=== PATIENT | female | born 1950 | race African-American/Black ===

== ENCOUNTER 2019-01-07 13:40 | Inpatient (IN) | payer MEDICARE, MEDICAID ==
[~2019-01-07] VITALS: Ht 160 cm; Wt 73.8 kg
--- NOTE | 2019-01-07 13:47 | NUR ---
ED Nurse Note: Pt was brought to ED by [facility] with the c/o of multiple seizure started this morning. Placed on bed, hooked to electronic device monitor, established IV site on RT forearm with 18G, intact and patent. Blood specimen obtained; sent to labs. Will continue to monitor. Addendum: 01/07/19 at 1506 by [facility] ED Nurse Note: Pt was brought to ED by [facility] from board and care with the c/o of multiple seizure started this morning @ 0800. No head trauma, no oral trauma as pt verbalized. Placed on bed, hooked to electronic device monitor, established IV site on RT forearm with 18G, intact and patent. Blood specimen obtained; sent to labs. Will continue to monitor.
[2019-01-07 14:00] VITALS: BP 127/77
--- NOTE | 2019-01-07 14:11 | Emergency Room Report ---
History of Present Illness General Chief Complaint: Seizure Source: Medical Record, EMS Present Illness HPI Disclaimer: Please note that this report is being documented using DRAGON technology. This can lead to erroneous entry secondary to incorrect interpretation by the dictating instrument. HPI: 68-year-old female history of psychiatric disorder, hyperlipidemia presents for evaluation of seizures. The patient had witnessed generalized tonic-clonic seizures earlier today [facility]. There is no head injury. The patient remained conscious throughout the entire episodes of involuntary jerking. She states that she has never been put on antiepileptic medications. Over the past 2 years she reports having involuntary jerking movements in the left upper extremity and perioral paresthesias which she describes as seizures. They are becoming more frequent. She denies any recent head injury, headache, back pain, chest pain, shortness of breath, nausea, vomiting, diarrhea, fever or chills. She is otherwise in her usual state of health. Compliant with her medications. The involuntary jerking movements were more profound today involving her entire body which are new. PMH: Hypertension, hyperlipidemia, overactive bladder, psychiatric PSH: Reviewed Allergies: Denies Social Hx: Denies alcohol or drug use Allergies: Coded Allergies: No Known Allergies (Unverified , 01/07/19) Patient History Last Menstrual Period: na Nursing Documentation-PMH Hx Hypertension: Yes History Of Psychiatric Problem: Yes - depression Review of Systems All Other Systems: negative except mentioned in HPI Physical Exam Vital Signs Date Time Temp Pulse Resp B/P (MAP) Pulse Ox O2 Delivery O2 Flow Rate FiO2 01/07/19 13:45 99.0 76 18 120/80 (93) 89 Nasal Cannula 3.0 General: Awake and alert, no acute distress HEENT: NC/AT. EOMI. PERRLA. Pupils are 2 mm bilaterally faintly reactive. Visual walker are full. No nystagmus. Facial expressions are symmetrical. No facial droop. Cardiovascular: RRR. S1 and S2 normal. No murmur appreciated Resp: Normal work of breathing. No cough, wheezing or crackles appreciated Abdomen: Abdomen is soft, nondistended. Nontender Skin: Intact. No abrasions, laceration or rash over the exposed skin MSK: Normal tone and bulk. Moving all extremities. No obvious deformity. There is no drift in the upper or lower extremities bilaterally. Neuro: Awake and alert. Mentating appropriately. Facial expression symmetrical. No dysarthria, no ataxia on dugeql-pnng-eykxhh or icys-xh-qmka testing. Sensation to light touch is intact over the upper and lower extremities. The patient has intact speech with good repetition, comprehension. Fund of knowledge is full. No aphasia, no neglect. NIH:0 Medical Decision Making Diagnostic Impression: Primary Impression: Seizure disorder ER Course 68-year-old female presents for evaluation of generalized tonic-clonic seizures witnessed this morning at her skilled living facility. She endorses several years of worsening involuntary jerking sensations in the left upper extremity in the face but is not been put on antiepileptic medications as of yet. She denies head injury or loss of consciousness during these episodes today. Will obtain labs and CT scan of the head to rule out intracranial mass as the cause of these worsening episodes. Laboratory Tests Test 01/07/19 14:00 01/07/19 14:05 White Blood Count 7.5 K/UL (4.8-10.8) Red Blood Count 4.91 M/UL (4.20-5.40) Hemoglobin 15.7 G/DL (12.0-16.0) Hematocrit 47.1 % (37.0-47.0) H Mean Corpuscular Volume 96 FL (80-99) Mean Corpuscular Hemoglobin 31.9 PG (27.0-31.0) H Mean Corpuscular Hemoglobin Concent 33.2 G/DL (32.0-36.0) Red Cell Distribution Width 13.7 % (11.6-14.8) Platelet Count 165 K/UL (150-450) Mean Platelet Volume 5.6 FL (6.5-10.1) L Neutrophils (%) (Auto) 60.1 % (45.0-75.0) Lymphocytes (%) (Auto) 26.6 % (20.0-45.0) Monocytes (%) (Auto) 11.7 % (1.0-10.0) H Eosinophils (%) (Auto) 0.6 % (0.0-3.0) Basophils (%) (Auto) 1.0 % (0.0-2.0) Sodium Level 144 MMOL/L (136-145) Potassium Level 3.5 MMOL/L (3.5-5.1) Chloride Level 107 MMOL/L (98-107) Carbon Dioxide Level 28 MMOL/L (21-32) Anion Gap 9 mmol/L (5-15) Blood Urea Nitrogen 18 mg/dL (7-18) Creatinine 0.9 MG/DL (0.55-1.30) Estimate Glomerular Filtration Rate > 60 mL/min (>60) Glucose Level 163 MG/DL (74-106) H Calcium Level 8.7 MG/DL (8.5-10.1) Total Bilirubin 0.2 MG/DL (0.2-1.0) Aspartate Amino Transferase (AST) 21 U/L (15-37) Alanine Aminotransferase (ALT) 29 U/L (12-78) Alkaline Phosphatase 94 U/L (46-116) Total Protein 7.3 G/DL (6.4-8.2) Albumin 3.6 G/DL (3.4-5.0) Globulin 3.7 g/dL Albumin/Globulin Ratio 1.0 (1.0-2.7) Salicylates Level 4.8 ug/mL (2.8-20) Acetaminophen Level < 2 MCG/ML (10-30) L Serum Alcohol < 3 mg/dL Urine Color Yellow Urine Appearance Clear Urine pH 5 (4.5-8.0) Urine Specific [place] 1.020 (1.005-1.035) Urine Protein 1+ (NEGATIVE) H Urine Glucose (UA) Negative (NEGATIVE) Urine Ketones Negative (NEGATIVE) Urine Blood 4+ (NEGATIVE) H Urine Nitrite Negative (NEGATIVE) Urine Bilirubin Negative (NEGATIVE) Urine Urobilinogen Normal MG/DL (0.0-1.0) Urine Leukocyte Esterase 1+ (NEGATIVE) H Urine RBC 2-4 /HPF (0 - 2) H Urine WBC 5-10 /HPF (0 - 2) H Urine Squamous Epithelial Cells Moderate /LPF (NONE/OCC) H Urine Bacteria Few /HPF (NONE) Urine Mucus Few /LPF (NONE/OCC) H Urine Opiates Screen Negative (NEGATIVE) Urine Barbiturates Screen Negative (NEGATIVE) Phencyclidine (PCP) Screen Negative (NEGATIVE) Urine Amphetamines Screen Negative (NEGATIVE) Urine Benzodiazepines Screen Negative (NEGATIVE) Urine Cocaine Screen Negative (NEGATIVE) Urine Marijuana (THC) Screen Negative (NEGATIVE) EKG Diagnostic Results EKG Time: 14:31 Rate: normal Rhythm: NSR ST Segments: no acute changes Other Impression Sinus rhythm, left axis deviation, normal intervals. Q waves in the inferior lateral leads of undetermined significance. No ST segment changes Rhythm Strip Diag. Results Rhythm Strip Time: 14:31 EP Interpretation: yes Rate: 60s Rhythm: NSR, no PVC's, no ectopy Reevaluation Time: 15:52 Last Vital Signs Date Time Temp Pulse Resp B/P (MAP) Pulse Ox O2 Delivery O2 Flow Rate FiO2 01/07/19 13:45 99.0 76 18 120/80 (93) 89 Nasal Cannula 3.[address] scan of the head performed with IV contrast does not find evidence of intracranial mass, bleed or other enhancing lesion. There is an incidental finding of an empty sella. Labs have returned largely within normal limits. No white count, minor shift. Urinalysis is questionable for UTI with suicide esterase 1+ and some white cells but few bacteria. Patient will be admitted to the hospital on telemetry for further work-up of worsening tremors/seizure-like activity. She did receive Keppra. Vital signs are within normal limits. No further seizure-like activity while in the emergency department. Admitted to her PMD, Dr. Wong Disposition: ADMITTED INPATIENT Condition: Serious Mehdi Rojas MD Jan 07, 2019 14:11
[2019-01-07] MEDS ORDERED: levETIRAcetam 1,000mg/NS100ml 100 ML IVPB ONE (14:15)
[2019-01-07] MEDS ORDERED: Omnipaque-300 100ml vial INJ ONE (14:15)
--- NOTE | 2019-01-07 14:19 | NUR ---
ED Nurse Note: Obtained urine specimen, sent to labs.
--- NOTE | 2019-01-07 14:30 | NUR ---
ED Nurse Note: Pt on stable condition, VSS, denied pain. Keppra given per MD order. Will continue to monitor.
[2019-01-07 14:36] LABS: APPEARANCE,URINE CLEAR; BILIRUBIN, URINE NEGATIVE (NEGATIVE); COLOR,URINE YELLOW; GLUCOSE, URINE (UA) NEGATIVE (NEGATIVE); KETONES,URINE NEGATIVE (NEGATIVE); LEUKOCYTE ESTERASE ,URINE 1+ (NEGATIVE); NITRITE,URINE NEGATIVE (NEGATIVE); PH,URINE 5 (4.5-8.0); PROTEIN,URINE 1+ (NEGATIVE); UROBILINOGEN,URINE NORMAL MG/DL (0.0-1.0)
[2019-01-07 14:36] LABS: EOSINOPHILS % (AUTO) 0.6 % (0.0-3.0); HEMATOCRIT 47.1 % (37.0-47.0); HEMOGLOBIN 15.7 G/DL (12.0-16.0); LYMPHOCYTES % (AUTO) 26.6 % (20.0-45.0); MEAN CORPUSCULAR VOLUME 96 FL (80-99); MONOCYTES % (AUTO) 11.7 % (1.0-10.0); NEUTROPHILS % (AUTO) 60.1 % (45.0-75.0); PLATELET COUNT 165 K/UL (150-450); RED BLOOD COUNT 4.91 M/UL (4.20-5.40); RED CELL DISTRIBUTION WIDTH 13.7 % (11.6-14.8); WHITE BLOOD COUNT 7.5 K/UL (4.8-10.8)
[2019-01-07 14:52] LABS: ANION GAP 9 mmol/L (5-15); BLOOD UREA NITROGEN 18 mg/dL (7-18); CALCIUM 8.7 MG/DL (8.5-10.1); CARBON DIOXIDE 28 MMOL/L (21-32); CHLORIDE 107 MMOL/L (98-107); CREATININE 0.9 MG/DL (0.55-1.30); POTASSIUM 3.5 MMOL/L (3.5-5.1); SODIUM 144 MMOL/L (136-145)
[2019-01-07 14:57] LABS: ALANINE AMINOTRANSFERASE 29 U/L (12-78); ALBUMIN 3.6 G/DL (3.4-5.0); ALKALINE PHOSPHATASE 94 U/L (46-116); ASPARTATE AMINO TRANSFERASE 21 U/L (15-37); BILIRUBIN,TOTAL 0.2 MG/DL (0.2-1.0)
--- NOTE | 2019-01-07 15:00 | NUR ---
ED Nurse Note: Pt went for CT.
--- NOTE | 2019-01-07 15:18 | NUR ---
ED Nurse Note: Pt returned from CT; still on stable condition.
[2019-01-07 15:20] VITALS: BP 119/67
--- NOTE | 2019-01-07 15:57 | Diagnostic Imaging Report ---
Indication: Witnessed tonic-clonic seizures early today in group home facility Technique: Spiral acquisitions obtained through the brain pre- and post-IV contrast administration. Angled axial and coronal 5 x 5 mm slices reconstructed. Total dose length product 2477 mGycm. CTDIvol(s) 5, 62, 216, 60 mGy. Dose reduction achieved using automated exposure control Comparison: none Findings: Precontrast images demonstrate no acute intracranial hemorrhage or edema. No mass effect nor midline shift. Normal morejon-white differentiation. On the postcontrast images, no unusual contrast enhancing lesion is demonstrated. The calvarium is intact. The mastoids are clear. Visualized orbits and sinuses are unremarkable. There is evidence of an empty sella Impression: Negative for acute intracranial bleed, mass effect, or contrast enhancing lesion. Incidental finding of empty sella The CT scanner at [facility] is accredited by the [employer] and the scans are performed using protocols designed to limit radiation exposure to as low as reasonably achievable to attain images of sufficient resolution adequate for diagnostic evaluation.
--- NOTE | 2019-01-07 16:40 | NUR ---
ED Nurse Note: Obtained swab specimen for VRE, CRE & MRSA screening; sent to labs.
[2019-01-07 17:20] VITALS: BP 64/67
--- NOTE | 2019-01-07 17:25 | NUR ---
ED Nurse Note: Pt remained on stable condition, VSS; denied pain.
--- NOTE | 2019-01-07 18:29 | NUR ---
ED Nurse Note: telephone report given to sherley caban for continuity of care
--- NOTE | 2019-01-07 18:30 | NUR ---
TRANSFER TO FLOOR: Patient transferred to TELE UNIT as ordered, per Dr. Burnette. Report given to DIANA Valles. Belongings stayed with the pt and medication list given to the receiving RN. Family and or S/O informed of transfer.
[2019-01-07 19:00] VITALS: BP 110/59
--- NOTE | 2019-01-07 19:33 | NUR ---
HAND-OFF: Report given to Liss Whitt rn.
--- NOTE | 2019-01-07 19:45 | NUR ---
NURSE NOTES: Received report from DIANA Valles. Patient is awake lying semi-gonzalez's; resting comfortably. No signs of acute distress noted; denies pain at this time. AOx4; able to make needs known. Checked IV site; patent and flushed. No erythema, bleeding, or infiltration noted. Bedside commode at bedside. Bed at lowest position, brakes on, siderails up x3. Siderails padded following seizure precautions. Call light within reach. Will continue to monitor.
[2019-01-07 20:00] VITALS: BP 110/59
[2019-01-07] MEDS ORDERED: ZYPREXA10 MG ORAL (20:12)
[2019-01-07] MEDS ORDERED: RISPERDAL2 MG ORAL (20:12)
[2019-01-07] MEDS ORDERED: AMLODIPINE BESY10 MG ORAL (20:12)
[2019-01-07] MEDS ORDERED: MYRBETRIQ25 MG PO (20:12)
[2019-01-07] MEDS ORDERED: GABAPENTIN600 MG ORAL (20:12)
[2019-01-07] MEDS ORDERED: CRESTOR40 MG ORAL (20:12)
--- NOTE | 2019-01-07 20:15 | NUR ---
NURSE NOTES: Paged Dr. Busch for admission orders. Awaiting callback.
--- NOTE | 2019-01-07 21:10 | NUR ---
NURSE NOTES: Paged Dr. Busch again for admission orders. Awaiting callback.
[2019-01-07] MEDS: 1/2NS w/KCl 20mEq 1000ml 1,000 ML IV SCH (23:13)
[2019-01-08] VITALS (7 sets, daily range): BP systolic 110–137; BP diastolic 53–78
--- NOTE | 2019-01-08 07:34 | NUR ---
HAND-OFF: Report given to DIANA Colin. Patient is awake sitting on the bed eating breakfast. In stable condition. No seizure activity noted throughout shift.
--- NOTE | 2019-01-08 07:35 | NUR ---
NURSE NOTES: Received report from DIANA Leija in bed awake resting comfortably. Denies any pain at this time.No signs of acute distress noted. Patient is AOx4, able to make needs known. Checked IV site; patent and flushed. No erythema, bleeding, or infiltration noted. Bedside commode at bedside. Bed at lowest position, brakes on, siderails up x3. Siderails padded following seizure precautions. Call light within reach. Will continue with the plan of care.
[2019-01-08] MEDS: OLANZapine 10mg tab ORAL SCH ×2 (09:03→17:49)
[2019-01-08] MEDS: Heparin 5000 units/ml inj SUBQ SCH ×2 (09:07→21:29)
--- NOTE | 2019-01-08 12:56 | NUR ---
P.T Note: P.T evaluation completed. Pt is baseline independent in all areas of ADL/self care and gait/ambulation activities. Current functional status does not warrant skilled P.T service at this time. DC P.T service. Thank you for this referral.
[2019-01-08] MEDS: 1/2NS w/KCl 20mEq 1000ml 1,000 ML IV SCH (13:47)
--- NOTE | 2019-01-08 16:23 | Cardiology Report ---
APPROVED REPORT EKG Measurement Heart [id number] Normal sinus rhythm Possible Lateral infarct, age undetermined Abnormal ECG
[2019-01-08] MEDS ORDERED: Gadavist 7.5mMol/7.5ml vial IV PRN (17:15)
--- NOTE | 2019-01-08 19:23 | NUR ---
HAND-OFF: Report given to DIANA Leija.Endorsed plan of care. Patient is in stable condition.
--- NOTE | 2019-01-08 19:28 | NUR ---
NURSE NOTES: Received report from DIANA Colin. Patient is asleep lying semi-gonzalez's; resting comfortably. Arousable to verbal and tactile stimuli. No signs of acute distress noted; denies pain at this time. AOx4; able to make needs known. Ambulates with assistance. Checked IV site, lines, and IV rate; patent and running. No erythema, bleeding, or infiltration noted. Bedside commode at bedside. Bed at lowest position, brakes on, siderails up x3. Siderails padded following seizure precautions. Call light within reach. Will continue to monitor.
--- NOTE | 2019-01-08 20:15 | History and Physical Report ---
DATE OF ADMISSION: 01/07/2019 CHIEF COMPLAINT: Seizures. HISTORY OF PRESENT ILLNESS: This is a 68-year-old female from [facility] under my care. The patient was sent to the emergency department due to epileptic seizures. The patient does not have a previous history of seizures. She is admitted to telemetry for observation. PAST MEDICAL HISTORY: 1. Hypertensive cardiovascular disease. 2. Hyperlipidemia. 3. Hyper-reactive bladder. 4. Psychiatric disorder. MEDICATIONS: Amlodipine 10 mg p.o. daily, atorvastatin 80 mg p.o. at bedtime, Neurontin 600 mg b.i.d., olanzapine 10 mg p.o. b.i.d., and risperidone 10 mg p.o. at bedtime. ALLERGIES: No known drug allergies. FAMILY HISTORY: Unremarkable. SOCIAL HISTORY: She lives in a board and care. HABITS: She is nonsmoker and nondrinker. There is no history of illicit drug abuse. REVIEW OF SYSTEMS: HEENT: Hearing and eyesight are normal. ENDOCRINE: No history of diabetes, thyroid, or adrenal problems. RESPIRATORY: She denies shortness of breath, cough, or hemoptysis. CARDIAC: She denies chest pain or palpitations. GASTROINTESTINAL: No history of hematochezia, melena, hematemesis, diarrhea, or constipation. GENITOURINARY: She denies dysuria, frequency, urgency, or hematuria. NEUROLOGICAL: Significant for new onset seizures. The patient did not lose her consciousness. There is no history of falling to the ground. PHYSICAL EXAMINATION: GENERAL: This is an elderly female, who is in no acute distress. VITAL SIGNS: Blood pressure 126/77, mean arterial pressure 93, pulse 51, sinus bradycardia, respirations 18, and temperature 98.2 oral Fahrenheit. HEENT: The head is normocephalic and atraumatic. Pupils are equal, round, and reactive to light and accommodation consensually. NECK: Supple. Trachea midline. There was no lymphadenopathy or thyromegaly. LUNGS: Clear to auscultation and percussion. HEART: Regular rate and rhythm without rubs, murmurs, or gallops. ABDOMEN: Soft and nontender. Bowel sounds were active. EXTREMITIES: No clubbing, cyanosis, or edema. NEUROLOGIC: She is alert and oriented x4. Cranial nerves II through XII intact. LABORATORY AND ANCILLARY DATA: CT scan of the head negative for acute intracranial bleed or other acute findings. Other laboratory data, CBC within normal limits. Chemistry, glucose 163, urine tox screen negative. Urinalysis, 5 to 10 white blood cells. ASSESSMENT: 1. New onset of seizures, rule out epileptic seizures. 2. Hypertensive cardiovascular disease. 3. Hyperlipidemia. 4. Hyper-reactive bladder. 5. Psychiatric disorder. 6. Mild sinus bradycardia. PLAN: 1. A Neurology consult ordered. 2. The patient started on Keppra. 3. EEG ordered. Felipe Busch M.D. DR: DAVE JOB#: [id number] CC: REN
--- NOTE | 2019-01-08 21:04 | Consultation ---
DATE OF CONSULTATION: 01/08/2019 NEUROLOGIC CONSULTATION CONSULTING PHYSICIAN: Benedict South M.D. CHIEF COMPLAINT: This is the first [facility] admission for this 68-year-old right-handed woman who is admitted through her facility with at least 1 generalized tonic-clonic seizure. I was asked to see the patient because of the seizure. The patient has a history of which maybe schizophrenia. She hears voices and also depressed. She could have a psychotic depression. The patient was in the care center. She only tells me that she has twitching of her mouth and twitching in the left arm lasting 5 to 10 seconds without loss of consciousness. The patient had these attacks for 2 years. She denies ever being unconscious. She has occasional headaches. There is no memory loss. She complains of some dysarthria and dysphagia sometimes. She has a lot of anxiety. There is no loss of smell or taste, diplopia, significant blurred vision, hearing loss, tinnitus, dizzy spells, muscle weakness, paresthesias, or dysesthesias. She has some problems with her gait, which she thinks is due to ulcer on her foot. The patient used to drink alcohol, but quit 6 months ago. She has smoked 30 pack years. There is no history of sexually transmitted diseases or head trauma or stroke or brain tumor or cancer in general. Denies any other tremors or shakes. There is no history of neck or back pain. The patient was transferred here. In the emergency room, she had an EKG, which was abnormal revealing possible lateral infarct, age undetermined. Laboratory studies revealed negative toxicology screen except for salicylate. Urinalysis revealed some slight abnormalities, 5 to 10 wbc's per high-power field, few bacteria, 4+ blood in urine. Rest was pretty much normal except for elevated squamous epithelial cells. The chemistries were normal including liver function tests except for a glucose of 163. Magnesium is not tested. Her CBC revealed hematocrit was elevated at 47.1. The patient had a head CT scan of the brain with and without contrast, which was unremarkable except for an empty sella. I was asked to see the patient in neurologic consultation. There is no family history of neurologic disease. PAST MEDICAL HISTORY/PAST MEDICAL ILLNESSES: Although the patient denied hypertension, she does have hypertension and has elevated cholesterol and "overactive bladder." ALLERGIES: She has no known allergies. SOCIAL HISTORY: Habits, see above. She does not take illegal drugs though she smoked marijuana in the past. MEDICATIONS: She is on zolpidem, gabapentin 300 mg t.i.d. as a mood stabilizer, and lovastatin. FAMILY HISTORY: Her father of the cancer of colon. He also had heart disease. Mother of a probably aortic aneurysm. She has a brother who is "okay." REVIEW OF SYSTEMS: Her appetite is good. She weighs 155 pounds, 5 feet 3-1/2 inches tall. PHYSICAL EXAMINATION: GENERAL: She is a well developed, overweight woman, lying in bed, in no acute distress. VITAL SIGNS: Blood pressure is 126/77, temperature is 98.2 degrees, pulse rate is 51, respiratory rate is 18. HEENT: Examination of head, ears, eyes, nose, mouth, and throat is basically intact. NECK: There is no tenderness or limitation of motion. Carotids are +2 without any bruits. LUNGS: Decreased breath sounds bilaterally. CARDIOVASCULAR: She has a grade 2/6 nearly holosystolic murmur heard best at the right second intercostal space midclavicular line. It increases with respiration. No other abnormal sounds were heard. ABDOMEN: Obese. Bowel sounds intact. No tenderness, masses, or organomegaly. BACK: There is no tenderness to percussion. EXTREMITIES: She has a bandage around the fourth toe on the right side and a lesion in the left big toe. NEUROLOGIC: MENTAL STATUS: She is alert and awake. Judgment, her judgment is normal. Affect, the affect is a little bit flat. Memory, past memory is intact to her birthday. Immediate recall 3/3 objects. Recent recall was 3/3 objects at 5 minutes. Intellect, some similarities are abstract i.e., watch and ruler "you can measure with them." Orientation - time, she knew it is 01/08/2019 and it was Sunday; place, she knew she was at [facility] second floor; person, she was oriented to person. Language function, spoken speech was fluent without paraphasias. There was no right or left confusion or finger agnosia. Repetition was intact. Naming was intact. She could spell world backwards normally. CRANIAL NERVE EXAMINATION: CRANIAL NERVE II: Visual walker were intact to confrontation. Fundi were not visualized. CRANIAL NERVES III, IV, AND : Extraocular motility was full. Pupils are approximately 3.5 mm, light reactive. CRANIAL NERVE V: Facial and corneal sensations were intact to fine touch. Pterygoid strength is 5/5. CRANIAL NERVE VII: Facial strength is 5/5 bilaterally. CRANIAL NERVE VIII: Auditory acuity is intact bilaterally. CRANIAL NERVES IX AND X: Gag is intact bilaterally. CRANIAL NERVES XI: Sternocleidomastoid strength is 5/5. CRANIAL NERVE XII: Tongue protrudes in the midline without fasciculations or atrophy. MUSCLE EXAMINATION: Muscle bulk and tone are normal. Strength is 5/5 proximally and distally without pronator drift. There is no asterixis. REFLEXES: +1 to +2 in the upper extremities, +1 at the knees, 0 at the ankles with downgoing toes and testing for Babinski response. COORDINATION: Oqlbae-[id number], varn-jb-sgrf testing were intact. GAIT AND STATION: Not tested. SENSORY EXAMINATION: Pinprick, fine touch, and proprioception were all normal. IMPRESSION: This patient has an unprovoked seizure. There is no obvious at this time. The patient is on Zyprexa, risperidone, . She was given Keppra 750 mg . The patient's seizure threshold was decreased because of the risperidone and Zyprexa. I am going to continue the Keppra that she was given at 500 mg twice a day. An MRI scan of brain with seizure protocol will be obtained. EEG awake and asleep will be obtained. RPR and FTA will be obtained as well as MMA and B12 level. PLAN: 1. As above. 2. I will speak to you about this case. Thank you for this interesting case. Benedict South MD DR: VALENCIA JOB#: [id number] CC:
[2019-01-08] MEDS: Atorvastatin 80mg tab ORAL SCH (21:26)
[2019-01-09] VITALS: BP 141/59
[2019-01-09 04:00] VITALS: BP 134/84
[2019-01-09] MEDS: 1/2NS w/KCl 20mEq 1000ml 1,000 ML IV SCH ×2 (05:45→19:57)
--- NOTE | 2019-01-09 07:20 | NUR ---
HAND-OFF: Report given to DIANA Ospina. Patient is awake sitting on the bed eating breakfast. No seizure activity noted throughout shift. In stable condition.
--- NOTE | 2019-01-09 07:50 | NUR ---
NURSE NOTES: Received report from DIANA Leija. Pt sitting at edge of bed, eating breakfast, talkative no complaints of pain, no apparent distress noted, able to follow commands, instructed pt to call if assistance is needed, before getting up, bed in lowest position, call light within reach, discussed plan of care
[2019-01-09 08:00] VITALS: BP 114/58
[2019-01-09] MEDS: OLANZapine 10mg tab ORAL SCH ×2 (09:31→17:18)
[2019-01-09] MEDS: Heparin 5000 units/ml inj SUBQ SCH ×2 (09:38→20:41)
--- NOTE | 2019-01-09 11:38 | NUR ---
MRI BRAIN W/WO (SEIZURE PROTOCOL) COMPLETED.
[2019-01-09 12:00] VITALS: BP 124/76
--- NOTE | 2019-01-09 13:22 | Diagnostic Imaging Report ---
Indication: 68-year-old female with recent onset of multiple seizures Technique: sagittal T1 fast spin echo, axial T1 and T2 FLAIR PROPELLER, axial T2 FS PROPELLER, T2* GRE, axial diffusion weighted images, coronal T2 FLAIR PROPELLER, coronal FSPGR HAMM, post contrast axial and coronal T1 FLAIR PROPELLER images., ADC and exponential ADC maps generated Comparison: No comparison MRIs. Reference made to CT scan dated 01/07/2019 Findings: . No abnormal areas of restricted diffusion to suggest acute infarction. No acute hemorrhage or edema. No mass effect nor midline shift. No abnormal contrast enhancement. Normal size ventricles and extra axial CSF spaces. Visualized orbits and sinuses are unremarkable. The vascular flow voids are preserved. There is incidental finding of an empty sella. Bilateral BY are symmetric, demonstrate normal signal. Impression: Negative. No evidence of acute intracranial bleed, mass effect, infarct, or contrast enhancing lesion Incidental finding of empty sella
--- NOTE | 2019-01-09 13:28 | NUR ---
MOBILE PRODUCT MANAGERSENIOR SUSTAINABILITY CONSULTANT SI: SEIZURES,BRADYCARDIA T. 98.1 HR 50 RR 20 B/P 114/58 MRI BRAIN= PENDING IS: NEURONTIN PO IV NS @65ML/HR KEPPRA PO SEIZURE PRECAUTION MED/SURG STATUS
[2019-01-09 15:40] VITALS: BP 120/74
--- NOTE | 2019-01-09 19:24 | NUR ---
HAND-OFF: Report given to DIANA Clemons. Pt stable.
--- NOTE | 2019-01-09 19:55 | NUR ---
NURSE NOTES: Received report from DIANA Ospina. Patient is in bed, awake and responsive. Breathing regular and unlabored with no s/s of SOB noted. Was informed by morning RN that patient had episodes of bradycardia and MD was notified, with no new orders present. Patient's IV is intact and running fluids at prescribed rate. Side-rails are padded for seizure precautions. Bed is in lowest position, breaks engaged, and call light is within reach at all times. Patient denies any pain or discomfort at this time. Re-enforced patient to call in need of assistance, patient verbalized understanding. Will continue to monitor.
[2019-01-09 20:00] VITALS: BP 117/57
[2019-01-09] MEDS: Atorvastatin 80mg tab ORAL SCH (20:39)
--- NOTE | 2019-01-09 23:45 | Electroencephalogram ---
DATE OF PROCEDURE: 01/08/2019 REQUESTING PHYSICIAN: READING PHYSICIAN: Harsh Escalera M.D. PROCEDURE PERFORMED: Electroencephalogram. HISTORY: This EEG was performed on a 68-year-old gentleman with a history of seizure disorder. The patient is on Keppra, Neurontin, and Risperdal at this point in time. The purpose of this EEG was to evaluate the patient for ongoing ictal or interictal phenomena. TECHNICAL NOTE: This EEG was performed on a [employer] with electrodes placed on the scalp according to the international 10-20 system. Knvhj-by-uitbz and ptlpr-nr-heg montages were used. The EEG was technically satisfactory and was performed in the awake, drowsy, and sleep states. OBSERVATIONS: In the best-awake state, the background activity consisted of 8.5 to 9 hertz posteriorly predominant well-developed alpha waveforms, which attenuated on eye opening. Drowsiness was characterized by dissolution of the alpha rhythm and the appearance of slow frequencies in the 5 to 6 hertz theta range. Stage 2 sleep was characterized by further slowing of the background in the delta and theta range and the presence of vertex waves. No focal abnormalities or epileptiform discharges were seen. IMPRESSION: Normal awake, drowsy, and stage 2 sleep EEG. Harsh Escalera M.D. DR: Shaquille JOB#: [id number] CC:
--- NOTE | 2019-01-09 23:55 | General Progress Note ---
Assessment/Plan Assessment/Plan: New onset Sz - stable on Keppra. DC planning to B+C Subjective Allergies: Coded Allergies: No Known Allergies (Unverified , 01/07/19) Subjective No new c/o Objective Last 24 Hour Vital Signs Date Time Temp Pulse Resp B/P (MAP) Pulse Ox O2 Delivery O2 Flow Rate FiO2 01/09/19 20:00 98.4 52 18 117/57 (77) 92 01/09/19 15:40 98.2 51 20 120/74 (89) 96 01/09/19 15:39 49 01/09/19 12:06 50 01/09/19 12:00 97.7 53 18 124/76 (92) 98 01/09/19 09:32 52 114/58 01/09/19 08:05 Room Air 01/09/19 08:00 98.1 52 20 114/58 (76) 99 01/09/19 07:46 50 01/09/19 04:00 56 01/09/19 04:00 97.9 43 16 134/84 (101) 94 01/09/19 00:00 60 01/09/19 00:00 97.0 56 17 141/59 (86) 93 Intake and Output 01/08/19 01/09/19 19:00 07:00 Intake Total 545 ml 731 ml Balance 545 ml 731 ml Intake Oral 480 ml IV Total 65 ml 731 ml # Voids 3 2 Height (Feet): 5 Height (Inches): 3.00 Weight (Pounds): 162 Objective CV RR Lungs CTA Abd SNT.BS + E No CCE Felipe Busch MD Jan 09, 2019 23:55
[2019-01-10] VITALS: BP 116/55
[2019-01-10] MEDS: 1/2NS w/KCl 20mEq 1000ml 1,000 ML IV SCH (01:01)
[2019-01-10 04:00] VITALS: BP 133/72
--- NOTE | 2019-01-10 06:56 | NUR ---
HAND-OFF: Report given to DIANA Ospina. Patient in stable condition.
--- NOTE | 2019-01-10 07:14 | NUR ---
NURSE NOTES: Received report from DIANA Barnes. Pt awake, talkative, no complaints, no distress noted, bed in lowest position, call light within reach, Iv fluids running according to order, discussed plan of care.
[2019-01-10 08:00] VITALS: BP 108/56
--- NOTE | 2019-01-10 08:30 | NUR ---
NURSE NOTES: RN spoke with Dr. Busch about pt's HR in the 40's, MD reviewed med, no new orders given. Discussed non-formulary medication, said no need to give while in hospital. Pt to be discharge today.
[2019-01-10] MEDS: OLANZapine 10mg tab ORAL SCH (08:41)
[2019-01-10] MEDS: Heparin 5000 units/ml inj SUBQ SCH (08:42)
--- NOTE | 2019-01-10 08:48 | General Progress Note ---
Assessment/Plan Assessment/Plan: New onset Sz - stable on Keppra. EEG WNG DC to B+C Subjective Allergies: Coded Allergies: No Known Allergies (Unverified , 01/07/19) Subjective No new c/o Objective Last 24 Hour Vital Signs Date Time Temp Pulse Resp B/P (MAP) Pulse Ox O2 Delivery O2 Flow Rate FiO2 01/10/19 08:41 51 108/56 01/10/19 08:00 98.8 51 18 108/56 (73) 93 01/10/19 04:00 97.7 44 19 133/72 (92) 96 01/10/19 04:00 42 01/10/19 00:00 97.5 55 18 116/55 (75) 94 01/10/19 00:00 63 01/09/19 21:00 Room Air 01/09/19 20:00 54 01/09/19 20:00 98.4 52 18 117/57 (77) 92 01/09/19 15:40 98.2 51 20 120/74 (89) 96 01/09/19 15:39 49 01/09/19 12:06 50 01/09/19 12:00 97.7 53 18 124/76 (92) 98 01/09/19 09:32 52 114/58 Intake and Output 01/09/19 01/10/19 19:00 07:00 Intake Total 1000 ml Balance 1000 ml Intake Oral 480 ml IV Total 520 ml # Voids 3 4 Height (Feet): 5 Height (Inches): 3.00 Weight (Pounds): 162 Objective CV RR Lungs CTA Abd SNT.BS + E No CCE Felipe Busch MD Jan 10, 2019 08:48
[2019-01-10] MEDS ORDERED: KEPPRA500 MG ORAL (08:54)
--- NOTE | 2019-01-10 10:14 | NUR ---
*-* INSURANCE *-* ALL CLINICALS AND REVIEWS HAVE BEEN FAXED TO: [facility]#[id number] CM: PAIGE #[phone] FAX#[phone] REVIEWS/CLINICALS
[2019-01-10 11:28] VITALS: BP 118/68
--- NOTE | 2019-01-10 13:20 | NUR ---
NURSE NOTES: Tele box removed, IV out intact, all DC paperwork signed, taxi has been called
--- NOTE | 2019-01-10 13:32 | NUR ---
NURSE NOTES: Pt discharge back to [facility]& with all belongings, pt stable for discharge, taken via wheelchair to with taxi voucher. [employer] taking pt home.
--- NOTE | 2019-01-12 18:22 | Discharge Summary ---
Discharge Summary Discharge Summary _ DATE OF ADMISSION: 01/07/2019 DATE OF DISCHARGE: 01/10/2019 DISCHARGED BY: Dr. Felipe Busch CONSULTANTS: Dr. Benedict Sotuh BRIEF HOSPITAL COURSE: Patient is a 68-year-old female from [facility]. She was sent to the emergency department due to epileptic seizures. Patient did not have a previous history of seizure. She has medical history of hypertensive cardiovascular disease, hyperlipidemia, and psychiatric disorder. She denied head injury or loss of consciousness. On evaluation at the ED, vital signs were stable. Blood work did not show any leukocytosis. Hemoglobin and hematocrit were stable. Electrolytes were stable. Urine toxicology screen negative. Salicylate and acetaminophen normal. Alcohol level low. Urinalysis showed +1 leukocyte esterase, 2-4 urine RBC, 5-10 urine WBC. EKG showed sinus rhythm with left axis deviation, normal intervals. Q waves in the inferior lateral leads of undetermined significance. No ST segment changes. CT scan of the head did not show any intracranial mass , bleed or enhancing lesion. There is an incidental finding of an empty sella. She was given Keppra. She was admitted for new onset seizure. Neuro consultation was obtained. Patient had unprovoked seizure. Patient is taking Zyprexa and risperidone. Patient's seizure threshold was decreased due to risperidone and Zyprexa. RPR was nonreactive. Treponema antibody still pending. Brain MRI did not show any evidence of acute intracranial bleed, mass-effect or infarct or contrast-enhancing lesion. EEG was performed. Final reading still pending. Preliminary report showed normal awake, drowsy, and stage II sleep EEG. She was given PT and OT. There was no further recurrence of seizure episodes. Patient was eventually discharged back to assisted living. FINAL DIAGNOSES: New onset seizure Hypertension Hyperlipidemia Psychosis DISPOSITION: DC back to [id number] DISCHARGE MEDICATIONS: Refer to Discharge Medication List. DISCHARGE INSTRUCTIONS: Follow-up in a week. I have been assigned to complete a discharge summary on this account, I was not involved with the patient's management.--KENDALL Felder Jacqueline Robles NP Jan 12, 2019 18:22
== END 2019-01-10 13:30 | disposition home or self-care (01) | DRG 53 ==
LOC: EDBD 13:40 → EMR 14:07 → 2E 15:30 → EDBEDREQ 17:33 → 2E 01-09 04:51
DX: G40.409 Other generalized epilepsy and epileptic syndromes, not intractable, without status epilepticus (principal); R00.0 Tachycardia, unspecified; E78.5 Hyperlipidemia, unspecified; I11.9 Hypertensive heart disease without heart failure
CPT/HCPCS: 36415; 70470; 70553; 80053; 80299; 80307; 81003; 83735; 85025; 86592; 86780; 87081; 93005; 95819; 96374; 99285; A9585; G0480